=== PATIENT | female | born 1980 | race African-American/Black ===

== ENCOUNTER 2021-10-10 08:29 | Emergency (ER) | payer OTHER, MEDICAID, SELFPAY ==
[2021-10-10 09:15] VITALS: BP 149/102; PULSE 82; RESP 18; TEMP 36.9; O2SAT 98; BMI 44.1
--- NOTE | 2021-10-10 09:20 | DI.RAD.S_ITS ---
PROCEDURE: XR HIP W PEL IF DONE RT 2V INDICATIONS: Groin pain after injury eval for fracture TECHNIQUE: AP pelvis with lateral view(s) of the right hip(s). COMPARISON: None. FINDINGS: Bones: No fractures or dislocations. Mild right hip joint osteoarthritic changes are seen with joint space narrowing and subchondral sclerosis. No evidence of avascular necrosis of femoral head. Pelvic ring appears intact. No suspicious bony lesions. Soft tissues: The visualized bowel gas pattern is normal. No suspicious soft tissue calcifications. IMPRESSION: Mild right hip joint osteoarthritis. No fracture or dislocation. No evidence of avascular necrosis. Dictated by: Luis Nicole M.D. on 10/10/2021 at 10:03 Approved by: Luis Nicole M.D. on 10/10/2021 at 10:03
--- NOTE | 2021-10-10 09:20 | ED_ITS ---
HPI - General Adult General Chief complaint: Extremity Problem,Nontraumatic Stated complaint: Groin pain- rt side Time Seen by Provider: 10/10/21 09:05 Source: patient Mode of arrival: Ambulatory Limitations: no limitations History of Present Illness HPI narrative: Patient is a 40-year-old female here for evaluation of right-sided groin pain. States that her symptoms started yesterday. There was not 1 specific incident that caused discomfort. It is hard for her to pinpoint exactly where it hurts. He states it hurts in groin and along the back of her leg he can also the outside of her leg although once again touching the area does not make it worse. She does feel like when she is on her knees and moves her legs outward is when the discomfort happens. No knee pain. No ankle pain. No skin rashes. No urinary symptoms. No change in bowel habits. No nausea vomiting. Related Data Allergies Allergy/AdvReac Type Severity Reaction Status Date / Time loratadine [From Claritin] Allergy ITCHING Verified 10/10/21 09:29 [email or web address] Allergy ITCHING Verified 10/10/21 09:29 Penicillins Allergy Rash Verified 10/10/21 09:29 Review of Systems Constitutional Constitutional: Reports system reviewed and no additional complaints, except as documented Gastrointestinal Gastrointestinal: Reports system reviewed and no additional complaints, except as documented Genitourinary Genitourinary: Reports system reviewed and no additional complaints, except as documented Musculoskeletal Musculoskeletal: Reports system reviewed and no additional complaints, except as documented and Reports as per HPI Integumentary/Breasts Skin/Breast: Reports system reviewed and no additional complaints, except as documented Neurologic Neurologic: Reports system reviewed and no additional complaints, except as documented Hematologic/Lymphatic On Anticoagulants: No Patient History Medical History Healthy adult Social History Smoking Status: Never smoker Exam Initial Vital Signs Initial Vital Signs: Vital Signs Temperature 98.5 F 10/10/21 09:15 Pulse Rate 82 10/10/21 09:15 Respiratory Rate 18 10/10/21 09:15 Blood Pressure 149/102 H 10/10/21 09:15 Pulse Oximetry 98 10/10/21 09:15 Const General: cooperative, comfortable and well developed HENMT Head: normal to inspection and normocephalic Resp Effort & Inspection: normal respiratory effort Skin General: no rashes or lesions noted Neuro Gait: normal gait Sensory Exam: no sensory deficits noted Extrem Other: There is no reproducible tenderness to palpation either over the greater trochanter over the hamstring over the hip flexors. She can flex and extend her hip without discomfort. There are no mechanical symptoms. Her right knee and right ankle unremarkable. Course Orders Ordered: ED Orders 10/10/21 09:20 XR hip w pel if done RT 2V Stat Vital Signs Vital signs: Vital Signs - 8 hr 10/10/21 09:15 Temperature 98.5 F Pulse Rate 82 Respiratory Rate 18 Blood Pressure 149/102 H Pulse Oximetry 98 Medical Decision Making Imaging Data Extremity x-ray #1: Radiologist's Impression: [address] [address] XRay Report Signed Patient: Cathleen Reddy MR#: [id number] : 1980 Acct:[id number] Age/Sex: 40 / F Date of Service: 10/10/21 Loc: ED Accession Number: [id number] ?? Procedure: XR hip w pel if done RT 2V Ordering Provider: Axel Raphael D.O. PROCEDURE:? XR HIP W PEL IF DONE RT 2V ? INDICATIONS:? Groin pain after injury eval for fracture ? TECHNIQUE:? AP pelvis with lateral view(s) of the right hip(s).? ? COMPARISON:? None. ? FINDINGS:? ? Bones:? No fractures or dislocations.? Mild right hip joint osteoarthritic changes are seen with joint space narrowing and subchondral sclerosis.? No evidence of avascular necrosis of femoral head.? Pelvic ring appears intact.? No suspicious bony lesions.? ? Soft tissues:? The visualized bowel gas pattern is normal.? No suspicious soft tissue calcifications.? ? ? IMPRESSION:? Mild right hip joint osteoarthritis.? No fracture or dislocation.? No evidence of avascular necrosis.? ? ? Dictated by: Luis Nicole M.D. on 10/10/2021 at 10:03 ? ? Approved by: Luis Nicole M.D. on 10/10/2021 at 10:03? MDM Narrative Medical decision making narrative: Patient's x-ray shows no signs of fracture. Low suspicion for infection. There is not 1 specific area where she is having discomfort which makes me think that it is potentially intra-articular. Could be her arthritis or potentially labral issue. For right now we will start with conservative measures to include anti- inflammatories and stretching. She was given return precautions. She expressed understanding and agreement. Discharge Plan Departure Patient Disposition: Home Clinical Impression: Acute hip pain Instructions: DI for Hip Pain Activity Restrictions/Additional Instructions: Recommend that you take an anti-inflammatory such as Motrin/ibuprofen. Be sure to take this with food. There were no fractures noted on the x-rays. If her symptoms continue you may potentially need a referral to see Physical therapy. Your primary doctor will have to do this. Return to the emergency department for any new or worsening symptoms.
[2021-10-10 10:47] VITALS: BP 141/78; PULSE 60; O2SAT 100
== END 2021-10-10 10:47 | disposition home or self-care (01) ==
PROVIDERS: Emergency Provider Emergency Medicine
DX: M25.551 Pain in right hip (principal)
CPT/HCPCS: 73502; 99283

== ENCOUNTER 2022-02-08 04:59 | Emergency (ER) | payer OTHER, MEDICAID, SELFPAY ==
[2022-02-08] VITALS (9 sets, daily range): BP systolic 150–162; BP diastolic 77–95; PULSE 63–84; RESP 18; O2SAT 89–100
--- NOTE | 2022-02-08 05:05 | DI.CT.S_ITS ---
PROCEDURE: CT CHEST ABD PEL WO CON INDICATIONS: fall/injury TECHNIQUE: 5 mm thick sections acquired from the lung apices to the symphysis pubis. 5 mm thick coronal and sagittal reformats acquired, with additional 7 mm coronal MIP reformats through the lungs. For radiation dose reduction, the following was used: automated exposure control, adjustment of mA and/or kV according to patient size. COMPARISON: None. FINDINGS: Image quality: Excellent. Evaluation of the solid parenchymal organs is limited without IV contrast. CHEST: Lungs and pleura: Right upper lobe subpleural pulmonary nodule measuring 0.2 cm, (4/88). Left lower lobe juxta fissural pulmonary nodule measuring 0.3 cm, (4/125). No acute pulmonary opacities. No pleural effusions or pneumothorax. Central and peripheral airways are patent are normal in caliber. Mediastinum: Heart size is normal. No pericardial effusion. No mediastinal adenopathy by CT size criteria. Thoracic aorta and central pulmonary arteries are normal in size. Esophagus is normal in caliber. No hiatal hernia. Chest wall: No axillary or supraclavicular adenopathy by size criteria. Thyroid gland is unremarkable. ABDOMEN: Solid organs: Liver is normal in size. Gallbladder is unremarkable. Pancreas is normal in contours. Spleen is normal in size. Presume small splenules. No adrenal nodules. Both kidneys are normal in size, without hydronephrosis or nephrolithiasis. Peritoneum and bowel: Small and large bowel loops are normal in caliber and wall thickness. Normal appendix. No free fluid or air. Nodes and vessels: No retroperitoneal or mesenteric adenopathy by size criteria. Aorta and inferior vena cava are normal in size. Miscellaneous: No ventral hernias. PELVIS: Genitourinary: Bladder wall thickness is normal. No stones. Anteverted uterus. No free fluid. Miscellaneous: No inguinal hernias or adenopathy. Bones: No suspicious bony lesions. Sclerosis at the SI joints. No vertebral body compression fractures. IMPRESSION: 1. No fracture identified. 2. No traumatic injury identified. No free fluid. Evaluation of the solid parenchymal organs is limited without IV contrast. 3. Sclerosis at the SI joints. This could be the sequelae of sacroiliitis or iliacus condensans. This report is concordant with the overnight preliminary interpretation. Dictated by: Adiel Staley M.D. on 02/08/2022 at 8:42 Approved by: Adiel Staley M.D. on 02/08/2022 at 8:50
--- NOTE | 2022-02-08 05:05 | DI.RAD.S_ITS ---
PROCEDURE: XR FOOT RT MIN 3V INDICATIONS: pain/injury TECHNIQUE: 3 views of the foot were acquired. COMPARISON: None. FINDINGS: Bones: No fractures or dislocations. No suspicious bony lesions. Calcaneal spurs are noted. Soft tissues: No tibiotalar joint effusion. Achilles tendon appears normal. IMPRESSION: No acute abnormality of the right foot. Comment: Final report is concordant with preliminary interpretation by [facility] Dictated by: Denzel Street M.D. on 02/08/2022 at 8:11 Approved by: Denzel Street M.D. on 02/08/2022 at 8:22
--- NOTE | 2022-02-08 05:05 | DI.CT.S_ITS ---
PROCEDURE: CT LE RT WO CON INDICATIONS: fall/injury TECHNIQUE: Noncontrast 1-1.5 mm axial sections acquired from the mid-patella to the proximal tibia, with coronal and sagittal reformats. COMPARISON: None. FINDINGS: Image quality: Excellent. Bones: Tricompartmental degenerative changes of the knee are seen, relatively mild. There is minimal medial joint space narrowing. No fracture or dislocation. No joint effusion. Soft tissues: No joint effusion. Myotendinous insertions are intact. IMPRESSION: 1. 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 2. No acute injury identified. Comment: Final report is concordant with preliminary interpretation by [facility] Dictated by: Denzel Street M.D. on 02/08/2022 at 8:08 Approved by: Denzel Street M.D. on 02/08/2022 at 8:10
[2022-02-08] MEDS: fentaNYL 100 MCG/2 ML INJ 50 MCG IV (05:15)
--- NOTE | 2022-02-08 05:25 | ED.FALL ---
HPI - Fall General Chief Complaint: Fall Stated Complaint: fell down stairs Time Seen by Provider: 02/08/22 05:04 Mode of arrival: EMS History of Present Illness HPI Narrative: Patient brought in by ambulance from home after slip fall down carpeted steps. Complains of right toe pain right knee pain right pelvis pain right rib and lower back pain. Also right shoulder pain. Denies does not want test. Did not hit her head. Denies any neck pain. EMS provided 50 mcg of fentanyl and 8 mg of Zofran. Patient was walking down steps carrying her son with her left arm. Her left foot slipped from below her and her right lower extremity abducted outward and sprained her toes. Has right shoulder pain from trying to catch the rails with her right hand. Denies hitting her head or neck.. Denies does not want a test Related Data Previous Rx's Medication Instructions Recorded hydrocodone 5 mg-acetaminophen 325 1 tab PO Q6H PRN pain #10 tabs 02/08/22 mg tablet ondansetron 4 mg disintegrating 4 mg PO Q8H PRN nausea and 02/08/22 tablet vomiting #10 tabs Allergies Allergy/AdvReac Type Severity Reaction Status Date / Time loratadine [From Claritin] Allergy ITCHING Verified 01/31/22 08:09 [email or web address] Allergy ITCHING Verified 01/31/22 08:09 Penicillins Allergy Rash Verified 01/31/22 08:09 Review of Systems Review of Systems Narrative: GENERAL: Denies chills, fatigue, malaise, fever, sweats. HEENT: Denies sinus pain, ear pain, sore throat RESPIRATORY: Denies dyspnea, cough CARDIOVASCULAR: Denies chest pain, palpitations GASTROINTESTINAL: Denies nausea, vomiting, abdominal pain : Denies dysuria, frequency, hematuria MUSCULOSKELETAL: Positive muscle or bony pain SKIN: Denies rash, skin lesions, negative skin injury NEUROLOGIC: Denies weakness, numbness ROS Unobtainable: All systems reviewed & are unremarkable except as noted in HPI and below Patient History Medical History (Updated 02/12/22 @ 20:18 by Reshma Dockery) Healthy adult Herpes Surgical History (Updated 02/12/22 @ 20:18 by Reshma Dockery) Anesthesia Status post breast reduction (~2003) Status post wrist surgery Family History (Updated 02/12/22 @ 20:19 by Reshma Dockery) Father Brain aneurysm Mother Hypertension Social History Smoking Status: Never smoker Smoking Status: Never smoker alcohol intake frequency: 0-2 drinks per day Substance Use Type: does not use Exam Narrative Exam Narrative: GENERAL: in no distress, not toxic not dyspneic HEAD: Normocephalic. Atraumatic nontender scalp and face. EYES: Pupils equal round No scleral icterus. ENT: Mucous membranes moist. NECK: Trachea midline. No midline tenderness or step-off of posterior cervical spine. CARDIOVASCULAR: Regular rate and rhythm without murmurs RESPIRATORY: Clear to auscultation. Breath sounds equal bilaterally. No wheezes, rales, or rhonchi. GASTROINTESTINAL: Abdomen soft, non-tender EXTREMITIES: No gross deformities. Examination left upper extremity nontender shoulder elbow wrist and able to bring left hand above her head and across touch her right shoulder. Nontender extremity. Examination left lower extremity nontender hip knee ankle thigh and lower extremity/leg. Nontender foot. Examination right lower extremity is not shortened. Nontender ankle with no pain with flexion-extension of the ankle. Foot is warm and soft with strong pedal pulse and light touch to toes however attempts to move toes has pain. Patient has minimal movement of the right knee due to pain. Skin is intact. Tibia and leg is nontender. Right lower extremity skin intact. No skin injury. Mild tenderness to the right hip. Limited flexion-extension to the hip due to pain. Examination of the right upper extremity nontender hand wrist forearm elbow. Mild tenderness to the right shoulder diffusely but no deformity or drop off. Passively a relative raise hand above her head and bring across and touch her left shoulder. NEURO: AOx4. SKIN: Warm and dry PSYCH: Not anxious, is cooperative Initial Vital Signs Initial Vital Signs: Vital Signs Pulse Rate 66 02/08/22 04:55 Respiratory Rate 18 02/08/22 04:55 Blood Pressure 162/95 H 02/08/22 04:55 Pulse Oximetry 99 02/08/22 04:55 Oxygen Delivery Method 02/08/22 04:55 Course Course Course Narrative: No new issues during course of stay Orders Ordered: Discontinued Medications Hydrocodone Bitart/Acetaminophen (Hydrocodone/Acet 5/325 Tablet) 2 tab PO NOW ONE Stop: 02/08/22 06:34 Last Admin: 02/08/22 06:36 Dose: 2 tab Documented By: ERIC Fentanyl (Fentanyl 100 Mcg/2 Ml Inj) 50 mcg IV NOW ONE Stop: 02/08/22 05:05 Last Admin: 02/08/22 05:15 Dose: 50 mcg Documented By: JOELLEN Reevaluation(s) Reevaluation #1: Reviewed results so far of imaging of knee and foot with patient. Understands awaiting for remaining images/results. Time: 06:34 Reevaluation #2: Pain control much better. Reviewed final results of imaging with patient. Agrees with treatment plan follow up with Orthopedics. Time: 06:53 Vital Signs Vital signs: Vital Signs - 8 hr 02/08/22 04:55 Pulse Rate 66 Respiratory Rate 18 Blood Pressure 162/95 H Pulse Oximetry 99 Oxygen Delivery Method Room Air MDM - Fall Differential Diagnosis Differential diagnosis: Likely other (Foot fracture, knee fracture knee sprain, hip fracture dislocation strain, back strain, shoulder strain/fracture) Imaging Data CT chest abdomen pelvis: Radiologist's Impression: No acute traumatic injury within the chest abdomen or pelvis. Extremity x-ray #1: Radiologist's Impression: CT right knee impression tricompartmental degenerative changes of the right knee. No acute injury is identified Extremity x-ray #2: Radiologist's Impression: X-ray right foot impression no acute traumatic injury is identified. [facility] Narrative Medical decision making narrative: No CT head and neck at this time. Patient denies any injury to the head and neck. Appropriate for discharge home. Exam and imaging otherwise reassuring. Return precautions reviewed with patient. Work note provided. Prescription for short course pain medication provided. Discharge Plan Departure Patient Disposition: Home Clinical Impression: Right knee sprain, Other sprain of right foot, initial encounter, Groin strain Instructions: DI for Knee Sprain, DI for Groin Strain, DI for Foot Sprain Activity Restrictions/Additional Instructions: No driving or operating machinery today when taking prescribed pain medication. Use crutches and knee immobilizer when walking. Call provided orthopedic office today for appointment next week. Return if worse if any questions or concerns. May supplement prescribed pain medication with ibuprofen. Use provided ice pack 20 minutes at a time for pain and swelling. Prescriptions: New hydrocodone-acetaminophen 5-325 mg tablet 1 tab PO Q6H PRN (Reason: pain) Qty: 10 0RF ondansetron 4 mg tablet,disintegrating 4 mg PO Q8H PRN (Reason: nausea and vomiting) Qty: 10 0RF Referrals: Hilaria Partida ND [Primary Care Provider] - Antonio Camacho MD [Physician] - Stand Alone Forms: Work Release Note Visit Report Forms: Patient Portal/API
[2022-02-08] MEDS: HYDROCODONE/ACET 5/325 TABLET 2 TAB PO (06:36)
== END 2022-02-08 08:43 | disposition home or self-care (01) ==
PROVIDERS: Emergency Provider Emergency Medicine; PCP Naturopath
DX: S83.91XA Sprain of unspecified site of right knee, initial encounter (principal); S93.601A Unspecified sprain of right foot, initial encounter; S39.011A Strain of muscle, fascia and tendon of abdomen, initial encounter; W19.XXXA Unspecified fall, initial encounter
CPT/HCPCS: 71250; 73630; 73700; 74176; 96374; 99284; J3010

== ENCOUNTER 2022-02-25 09:53 | Emergency (ER) | payer OTHER, MEDICAID, SELFPAY ==
[2022-02-25 10:27] VITALS: BP 130/96; PULSE 89; RESP 20; TEMP 36.1; O2SAT 100; BMI 43.8
[2022-02-25 11:34] LABS: Influenza A - CEPHEID Flu A NEGATIVE (NEGATIVE); Influenza B - CEPHEID Flu B NEGATIVE (NEGATIVE)
[2022-02-25 12:15] LABS: COVID-19 CEPHEID PCR (VTM/NP) POSITIVE (Negative)
[2022-02-25 14:29] VITALS: BP 147/87
--- NOTE | 2022-02-25 14:30 | ED_ITS ---
HPI - URI/Sore Throat <Rashmi Morris PA-C - Last Filed: 02/25/22 14:34> General Chief Complaint: Upper Respiratory Symptoms Stated Complaint: sore throat fever loss of apetite body aches x5day Time Seen by Provider: 02/25/22 13:00 Source: patient Mode of arrival: Ambulatory History of Present Illness HPI Narrative: 41-year-old female with no reported past medical history presents to the ED with 5 days of URI symptoms. Patient endorses fever, myalgias, sore throat, nasal congestion, cough. Patient also endorses that she slipped and fell while carrying her son about 10 days ago, knocked her right rodriguez, following which she has felt a bump, darkening of the skin and some pain at the site. Patient is concerned that she might have developed a blood clot. Patient denies chest pain, shortness of breath, nausea, vomiting, abdominal pain, dysuria, lightheadedness, dizziness, syncope. Patient denies any head injuries, loss of consciousness. Related Data Previous Rx's Medication Instructions Recorded hydrocodone 5 mg-acetaminophen 325 1 tab PO Q6H PRN pain #10 tabs 02/08/22 mg tablet ondansetron 4 mg disintegrating 4 mg PO Q8H PRN nausea and 02/08/22 tablet vomiting #10 tabs Allergies Allergy/AdvReac Type Severity Reaction Status Date / Time loratadine [From Claritin] Allergy ITCHING Verified 01/31/22 08:09 [email or web address] Allergy ITCHING Verified 01/31/22 08:09 Penicillins Allergy Rash Verified 01/31/22 08:09 Review of Systems <Rashmi Morris PA-C - Last Filed: 02/25/22 14:34> Review of Systems ROS Unobtainable: All systems reviewed & are unremarkable except as noted in HPI and below Constitutional Constitutional: Denies chills, Denies fatigue, Reports fever(s), Denies frequent falls, Reports lethargy, Reports malaise and Reports weakness Eyes Eyes: Denies change in vision, Denies eye discharge, Denies irritation and Denies loss of vision ENT Ears, Nose, Mouth, and Throat: Denies change in voice, Denies dizziness, Reports nasal congestion, Denies neck pain, Reports sore throat and Denies throat swelling Cardiovascular Cardiovascular: Denies chest pain, Denies irregular heart rhythm, Denies lightheadedness, Denies palpitations, Denies dyspnea, Denies dyspnea on exertion and Denies orthopnea Respiratory Respiratory: Reports cough, Denies dyspnea, Denies dyspnea on exertion and Denies wheezing Gastrointestinal Gastrointestinal: Denies abdominal pain, Denies change in bowel habits, Denies diarrhea, Denies nausea and Denies vomiting Genitourinary Genitourinary: Denies hematuria, Denies flank pain, Denies urinary incontinence and Denies urinary urgency Musculoskeletal Musculoskeletal: Denies back pain, Denies muscle weakness, Denies neck pain, Denies numbness and Denies tingling Integumentary/Breasts Skin/Breast: Denies pruritus, Denies erythema, Denies rash and Denies wounds Neurologic Neurologic: Denies behavioral changes, Denies confusion, Denies dizziness, Denies frequent falls, Denies loss of vision, Denies numbness, Denies tingling and Reports weakness Psychiatric Psychiatric: Denies anxiety, Denies behavioral changes, Denies confusion, Denies depression, Denies homicidal ideation and Denies suicidal ideation Endocrine Endocrine: Denies fatigue, Denies flushing and Denies palpitations Hematologic/Lymphatic Hematologic/Lymphatic: Denies easy bruising Allergic/Immunologic Allergic/Immunologic: Denies urticaria, Denies throat swelling and Denies wheezing Patient History <Rashmi Morris PA-C - Last Filed: 02/25/22 14:34> Medical History Healthy adult Herpes Surgical History Anesthesia Status post breast reduction (~2003) Status post wrist surgery Family History Father Brain aneurysm Mother Hypertension Social History Smoking Status: Never smoker Smoking Status: Never smoker alcohol intake frequency: 0-2 drinks per day Substance Use Type: does not use Exam <Rashmi Morris PA-C - Last Filed: 02/25/22 14:34> Narrative Exam Narrative: Const General:?cooperative, healthy appearing and comfortable HENMT Head:?normal to inspection Ears:?hearing grossly normal bilaterally Nose:?external nose normal Face and sinus:?normal facial exam and sinuses nontender Mouth:?oral mucosae normal Throat:?posterior oropharynx normal Eyes General:?appearance normal, both eyes and all related structures Neck Neck:?normal visual inspection and no lymphadenopathy noted Resp Effort & Inspection:?normal respiratory effort Auscultation:?clear to auscultation bilaterally Cardio Rate:?regular rate Rhythm:?regular rhythm Neuro General:?patient alert, patient awake and patient oriented x3 Initial Vital Signs Initial Vital Signs: Vital Signs Temperature 97 F L 02/25/22 10:27 Pulse Rate 89 02/25/22 10:27 Respiratory Rate 20 02/25/22 10:27 Blood Pressure 130/96 H 02/25/22 10:27 Pulse Oximetry 100 02/25/22 10:27 Oxygen Delivery Method 02/25/22 10:27 <Mariella Calderon DO - Last Filed: 02/26/22 08:09> Initial Vital Signs Initial Vital Signs: Vital Signs Temperature 97 F L 02/25/22 10:27 Pulse Rate 89 02/25/22 10:27 Respiratory Rate 20 02/25/22 10:27 Blood Pressure 130/96 H 02/25/22 10:27 Pulse Oximetry 100 02/25/22 10:27 Oxygen Delivery Method 02/25/22 10:27 Course <Rashmi Morris PA-C - Last Filed: 02/25/22 14:34> Orders Ordered: ED Orders 02/25/22 10:30 Covid-19 + FLU A/B by PCR Stat Vital Signs Vital signs: Vital Signs - 8 hr 02/25/22 10:27 Temperature 97 F L Pulse Rate 89 Respiratory Rate 20 Blood Pressure 130/96 H Pulse Oximetry 100 Oxygen Delivery Method Room Air <DO Jayme Manning Last Filed: 02/26/22 08:09> Orders Ordered: ED Orders 02/25/22 10:30 Covid-19 + FLU A/B by PCR Stat Vital Signs Vital signs: Vital Signs - 8 hr 02/25/22 10:27 Temperature 97 F L Pulse Rate 89 Respiratory Rate 20 Blood Pressure 130/96 H Pulse Oximetry 100 Oxygen Delivery Method Room Air MDM - URI/Sore Throat <RHONDA Degroot Last Filed: 02/25/22 14:34> Lab Data Labs: Lab Results 02/25/22 Range/Units 10:30 SARS-CoV-2 (PCR) Positive H (Negative) Influenza A (RT-PCR) Flu a negative (NEGATIVE) Influenza B (RT-PCR) Flu b negative (NEGATIVE) Point of Care Testing Rapid Strep A Negative MDM Narrative Medical decision making narrative: 41-year-old female with no reported past medical history presents to the ED with 5 days of URI symptoms. Concern for COVID-19 infection versus other viral syndrome versus contusion. Patient tested positive for COVID-19 in the ED. patient's leg symptoms are likely due to a contusion. Supportive care discussed with patient with Sudafed, ibuprofen, Tylenol. ED return precautions discussed with patient. Patient verbalized understanding. <Mariella Calderon, DO - Last Filed: 02/26/22 08:09> Lab Data Labs: Lab Results 02/25/22 Range/Units 10:30 SARS-CoV-2 (PCR) Positive H (Negative) Influenza A (RT-PCR) Flu a negative (NEGATIVE) Influenza B (RT-PCR) Flu b negative (NEGATIVE) Point of Care Testing Rapid Strep A Negative Discharge Plan Departure Patient Disposition: Home Clinical Impression: COVID-19 Instructions: DI for COVID-19 (Suspected or Confirmed ) Activity Restrictions/Additional Instructions: You were evaluated in the ED today for nasal congestion, fever, cough. You tested positive for COVID-19 in the ED today. The symptoms you are experiencing including fever, body aches, cough, sore throat, nasal congestion are consistent with a COVID-19 infection. Your vitals are normal, your heart and lungs sound normal on exam, which is very reassuring. You were also evaluated for right- sided lower leg pain, which is consistent with a contusion or bruise. You may apply warmth, take Tylenol or ibuprofen for symptoms. You may take Sudafed, ibuprofen or Tylenol for your COVID-19 symptoms. Please return to the ED if you have worsening symptoms including shortness of breath, chest pain. Prescriptions: No Action hydrocodone-acetaminophen 5-325 mg tablet 1 tab PO Q6H PRN (Reason: pain) Qty: 10 0RF ondansetron 4 mg tablet,disintegrating 4 mg PO Q8H PRN (Reason: nausea and vomiting) Qty: 10 0RF Referrals: Hilaria Partida ND [Primary Care Provider] - Stand Alone Forms: Work Release Note Visit Report Forms: Patient Portal/API <Mariella Calderon DO - Last Filed: 02/26/22 08:09> Cosign ED Attending Cosignature Attestation: I was immediately available in the department for consultation. Documentation has been reviewed.
== END 2022-02-25 14:30 | disposition home or self-care (01) ==
PROVIDERS: Emergency Medicine; Emergency Provider Student in an Organized Health Care Education/Training Program; PCP Naturopath
DX: U07.1 COVID-19 (principal)
CPT/HCPCS: 87635; 87880; 99281; 99282; C9803

== ENCOUNTER 2022-06-01 02:38 | Emergency (ER) | payer OTHER, MEDICAID, SELFPAY ==
--- NOTE | 2022-06-01 02:42 | ED_ITS ---
HPI - SOB/Dyspnea General Chief Complaint: Upper Respiratory Symptoms Stated Complaint: cough/runny nose/sore throat Time Seen by Provider: 06/01/22 02:42 Source: patient Mode of arrival: Ambulatory Limitations: no limitations History of Present Illness HPI Narrative: 41 year old female with complaint of runny nose, cough, sore throat, patient has had occasionally productive sputum, denies chest pain or pressure, no shortness of breath. No nausea or vomiting, no diarrhea constipation. No urinary symptoms. Patient states her son was diagnosed with influenza in the past week she lives with. She is had another potential sick contact as well. Patient states symptoms started on May 29. Patient has been taking some herbs for symptoms. She does not take any daily medications. She has al lergies to loratadine, penicillin and she states some kind of pain medication but does not recall the name. Related Data Previous Rx's Medication Instructions Recorded hydrocodone 5 mg-acetaminophen 325 1 tab PO Q6H PRN pain #10 tabs 02/08/22 mg tablet ondansetron 4 mg disintegrating 4 mg PO Q8H PRN nausea and 02/08/22 tablet vomiting #10 tabs Allergies Allergy/AdvReac Type Severity Reaction Status Date / Time loratadine [From Claritin] Allergy ITCHING Verified 01/31/22 08:09 [email or web address] Allergy ITCHING Verified 01/31/22 08:09 Penicillins Allergy Rash Verified 01/31/22 08:09 Review of Systems Review of Systems ROS Unobtainable: All systems reviewed & are unremarkable except as noted in HPI and below Patient History Medical History Healthy adult Herpes Surgical History Anesthesia Status post breast reduction (~2003) Status post wrist surgery Family History Father Brain aneurysm Mother Hypertension Social History Smoking Status: Never smoker Smoking Status: Never smoker alcohol intake frequency: 0-2 drinks per day Substance Use Type: does not use Exam Narrative Exam Narrative: GEN: well nourished, well appearing female, alert and oriented x 3, patient appears to be in mild distress. HEENT: Atraumatic, pupils are equal round reactive to light, extraocular movements are intact, nares are clear. HEART: Regular rate and rhythm without murmur, clicks, rubs. LUNGS:Lungs clear to auscultation, no wheezes, rales, crackles, chest moves symmetrically ABD:bowel sounds normal, soft, non-tender, no guarding, rebound, rigidity, no masses noted, no hepatosplenomegaly :No CVA tenderness MSCL: Non-tender, no muscle atrophy, muscles strength 5/5 upper and lower extremities, full range of motion, normal gait NEURO:CN 2-12 intact, sensation normal Initial Vital Signs Initial Vital Signs: Vital Signs Temperature 99.3 F 06/01/22 02:48 Pulse Rate 97 H 06/01/22 02:48 Respiratory Rate 20 06/01/22 02:48 Blood Pressure 145/85 H 06/01/22 02:48 Pulse Oximetry 98 06/01/22 02:48 Oxygen Delivery Method 06/01/22 02:48 Course Orders Ordered: ED Orders 06/01/22 02:47 Covid-19 + FLU A/B + RSV - PCR Stat Vital Signs Vital signs: Vital Signs - 8 hr 06/01/22 02:48 06/01/22 03:54 Temperature 99.3 F 101.0 F H Pulse Rate 97 H 86 Respiratory Rate 20 16 Blood Pressure 145/85 H 146/84 H Pulse Oximetry 98 100 Oxygen Delivery Method Room Air Room Air MDM - SOB/Dyspnea Lab Data Labs: Lab Results 06/01/22 Range/Units 02:47 SARS-CoV-2 (PCR) Negative (Negative) Influenza A (RT-PCR) Flu a positive H (NEGATIVE) Influenza B (RT-PCR) Flu b negative (NEGATIVE) RSV (PCR) Negative (Negative) MDM Narrative Medical decision making narrative: This is a 41-year-old female with viral upper respiratory symptoms, well- appearing on exam, swab for COVID/influenza and RSV was obtained. Patient asked about Tamiflu if influenza positive, she is outside the 48 hour window so discussed I would recommend at this time. Discharge Plan Departure Patient Disposition: Home Clinical Impression: Influenza A Activity Restrictions/Additional Instructions: I hope you starting feeling better soon. You tested positive for Influenza A today. You can take tylenol and/or ibuprofen for fevers or muscle aches. Please return for new chest, shortness of breath, passing out, persistent vomiting, signs of dehydration or other new or concerning changes. Prescriptions: No Action hydrocodone-acetaminophen 5-325 mg tablet 1 tab PO Q6H PRN (Reason: pain) Qty: 10 0RF ondansetron 4 mg tablet,disintegrating 4 mg PO Q8H PRN (Reason: nausea and vomiting) Qty: 10 0RF Referrals: Hilaria Partida ND [Primary Care Provider] - Visit Report Forms: Patient Portal/API
[2022-06-01 02:48] VITALS: BP 145/85; PULSE 97; RESP 20; TEMP 37.4; O2SAT 98; BMI 43.8
[2022-06-01 03:34] LABS: Influenza A - CEPHEID Flu A POSITIVE (NEGATIVE); Influenza B - CEPHEID Flu B NEGATIVE (NEGATIVE); Respiratory Syncytial Virus Negative (Negative)
[2022-06-01 03:36] LABS: COVID-19 CEPHEID 4-PLEX PCR Negative (Negative)
[2022-06-01 03:54] VITALS: BP 146/84; PULSE 86; RESP 16; TEMP 38.3; O2SAT 100
== END 2022-06-01 04:00 | disposition home or self-care (01) ==
PROVIDERS: Emergency Provider Emergency Medicine; PCP Naturopath
DX: J10.1 Influenza due to other identified influenza virus with other respiratory manifestations (principal); Z20.822 Contact with and (suspected) exposure to COVID-19
CPT/HCPCS: 0241U; 99281; 99282